=== PATIENT | male | born 1965 | race American Indian/Alaskan Native ===

== ENCOUNTER 2022-02-20 07:12 | Outpatient (CLI) | payer BC ==
--- NOTE | 2022-02-20 08:47 | Ultrasound Report ---
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 COMPARISON: None available. FINDINGS: RIGHT LOBE: Size (cm) = 3.8 x 1.4 x 1.5 LEFT LOBE: Size (cm) = 4.4 x 1.8 x 1.5 ISTHMUS: Thickness (cm) = 0.5 APPEARANCE: Normal. SMALL NODULES < 1 cm: 9 mm hypoechoic nodule in the mid left thyroid lobe (TR 4). NODULES >= 1 cm or SUSPICIOUS FEATURES (up to 4): - NODULE # 1 - Location: Right Upper - Maximum Size (cm): 0.8 - Significant Change (>= 20% in 2 dim. & inc. >= 2mm): No prior study - Composition: Solid = 2 points - Echogenicity: Hypoechoic = 2 points - Shape: [id number] = 3 points - Margin: Smooth = 0 points - Echogenic Foci: None = 0 points - Additional Echogenic Foci: None = 0 points - Additional Findings: None. - ACR TI-RADS Score / Category = 7+ points / TI-RADS 5 - No additional suspicious thyroid nodules. LYMPH NODES: No abnormal lymph nodes. PARATHYROID GLANDS: No abnormal parathyroid glands. ADDITIONAL FINDINGS: None. IMPRESSION: 1. 0.8 cm TR 5 nodule in the right upper lobe. Recommend follow-up ultrasound in one year. 2. No other nodule requiring routine sonographic follow up or fine-needle aspiration, per ACR guideli ayesha detailed below. ACR TI-RADS Thyroid Nodule Recommendations TI-RADS 1 (0 pts) -- BENIGN. - No Fine Needle Aspirate biopsy (FNA) or follow-up. TI-RADS 2 (1-2 pts) -- NOT SUSPICIOUS. - No FNA or follow-up. TI-RADS 3 (3 pts) -- MILDLY SUSPICIOUS. - >= 2.5 cm: FNA. - 1.5-2.4 cm: Follow up at 1, 3, 5 years. - < 1.5 cm: No follow up. TI-RADS 4 (4-6 pts) -- MODERATELY SUSPICIOUS. - >= 1.5 cm: FNA. - 1.0-1.4 cm: Follow up at 1, 2, 3, 5 years. - < 1.0 cm: No follow up. TI-RADS 5 (7+ pts) -- HIGHLY SUSPICIOUS. - >= 1.0 cm: FNA. - 0.5-0.9 cm: Follow annually for 5 years. - 0.5 cm: No follow up. REFERENCE: ACR Thyroid Imaging, Reporting and Data System (TI-RADS): White Paper of the ACR TI-RADS C ommittee. J AM Manny Radiol 2017;14:587-595. NOTE: Nodules < 1 cm do not typically require follow-up or FNA unless there are suspicious features. NOTE: Nodule size maximum dimension determines whether a given lesion should be biopsied or followed. NOTE: If multiple nodules meet criteria for FNA, only the two (2) most suspicious nodules should be b iopsied. In addition, FNA of any suspicious cervical nodes should be biopsied. NOTE: Predominantly Cystic nodules and Spongiform nodules, composed predominantly (>50%) of small cys tic spaces, are considered benign (TI-RADS 1) regardless of other criteria. Signer Name: Mina Hodges MD Signed: 02/20/2022 8:42 AM Workstation Name: [id number]
== END 2022-02-20 07:13 | disposition home or self-care (01) ==
LOC: US 07:12
PROVIDERS: ATTEND Family Medicine
DX: E04.1 Nontoxic single thyroid nodule (principal); E05.90 Thyrotoxicosis, unspecified without thyrotoxic crisis or storm
CPT/HCPCS: 76536